=== PATIENT | female | born 1995 | race Two or more races ===

== ENCOUNTER → 2017-01-03 | Outpatient (REF) | payer MEDICAID | LOC: M SFHCPLAZ 09:50 | PROVIDERS: ATTEND Family Medicine | DX: E66.9 Obesity, unspecified (principal) ==

== ENCOUNTER → 2017-05-03 | Outpatient (REF) | payer MEDICAID ==
[2017-05-03 13:08] LABS: FREE T4 0.98 NG/DL (0.76-1.46)
== END ==
LOC: M SFHCPLAZ 09:43
PROVIDERS: ATTEND Family Medicine
DX: E03.9 Hypothyroidism, unspecified (principal)

== ENCOUNTER → 2017-05-23 | Outpatient (REF) | payer MEDICAID | LOC: M SFHCWAGY 13:57 | PROVIDERS: ATTEND Nurse Practitioner Women's Health | DX: Z12.4 Encounter for screening for malignant neoplasm of cervix (principal) ==

== ENCOUNTER → 2017-06-10 | Outpatient (CLI) | payer MEDICAID | LOC: M SLEEP 20:00 | DX: R06.83 Snoring (principal) | CPT/HCPCS: 95810 ==

== ENCOUNTER → 2018-07-30 | Outpatient (REF) | payer OTHER ==
[2018-07-30 16:00] LABS: BASO % 0.4 % (0.0-1.0); EOS # 0.4 10^3/uL (0.0-0.50); EOS % 4.2 % (0.0-3.0); HEMATOCRIT 38.6 % (36.0-47.0); HEMOGLOBIN 12.3 g/dl (12.0-15.5); LYMPH # 2.4 10^3/uL (1.5-6.5); LYMPH % 24.8 % (24.0-44.0); MEAN CORPUSCULAR HEMOGLOBIN 29.2 pg (27.0-33.0); MEAN CORPUSCULAR HGB CONC 31.9 g/dl (32.0-36.5); MEAN CORPUSCULAR VOLUME 91.7 fl (80.0-96.0); MONO # 0.5 10^3/uL (0.0-0.8); MONO % 5.2 % (0.0-5.0); NEUTROPHILS # 6.2 10^3/uL (1.8-7.7); PLATELET COUNT, AUTOMATED 249 10^3/uL (150-450); RED BLOOD COUNT 4.21 10^6/uL (4.00-5.40); WHITE BLOOD COUNT 9.6 10^3/uL (4.0-10.0)
[2018-07-30 16:32] LABS: FREE T4 1.02 NG/DL (0.76-1.46); PERCENT SATURATION 18.1 % (13.2-45.0); THYROID STIMULATING HORMONE 2.64 uIU/ML (0.358-3.740)
[2018-07-30 16:43] LABS: HEMOGLOBIN A1c 5.7 %
== END ==
LOC: M SFHCPLAZ 14:22
PROVIDERS: ATTEND Family Medicine
DX: E03.9 Hypothyroidism, unspecified (principal); Z13.1 Encounter for screening for diabetes mellitus; Z86.2 Personal history of diseases of the blood and blood-forming organs and certain disorders involving the immune mechanism

== ENCOUNTER → 2018-08-08 | Outpatient (REF) | payer OTHER ==
[2018-08-08 17:33] LABS: CHLAMYDIA DNA AMPLIFICATION NEGATIVE (NEGATIVE); GC DNA AMPLIFICATION NEGATIVE (NEGATIVE)
== END ==
LOC: M SFHCWAGY 15:43
PROVIDERS: ATTEND Nurse Practitioner Women's Health
DX: Z11.3 Encounter for screening for infections with a predominantly sexual mode of transmission (principal)

== ENCOUNTER → 2019-04-23 | Outpatient (CLI) | payer OTHER ==
[2019-04-23 18:06] LABS: HEMATOCRIT 39.5 % (36.0-47.0); HEMOGLOBIN 12.7 g/dl (12.0-15.5); MEAN CORPUSCULAR HEMOGLOBIN 29.8 pg (27.0-33.0); MEAN CORPUSCULAR HGB CONC 32.2 g/dl (32.0-36.5); MEAN CORPUSCULAR VOLUME 92.7 fl (80.0-96.0); PLATELET COUNT, AUTOMATED 275 10^3/uL (150-450); RED BLOOD COUNT 4.26 10^6/uL (4.00-5.40); WHITE BLOOD COUNT 9.5 10^3/uL (4.0-10.0)
[2019-04-23 18:32] LABS: HEMOGLOBIN A1c 5.3 %
[2019-04-23 18:38] LABS: ERYTHROCYTE SEDIMENTATION RATE 20 mm/hr (0-20)
--- NOTE | 2019-04-24 01:43 | REP ---
Clinical: Neck pain. Technique: AP, lateral, open mouth views of the cervical spine. Findings: Alignment is maintained. Mild reversal of normal lordosis is nonspecific. Vertebral bodies are intact. No acute fracture / compression injury or subluxation. C1-C2 articulation and odontoid process are normal. Prevertebral soft tissues are normal. Impression: Essentially normal cervical spine radiograph series. Electronically Signed by Bryan Thompson MD 04/24/2019 01:35 A
--- NOTE | 2019-04-24 01:45 | REP ---
Clinical: thoracic pain. Technique: AP, lateral views of the thoracic spine. Findings: Alignment and kyphosis is maintained. Vertebral bodies intact. No acute fracture / compression injury or subluxation. No degenerative changes. Paravertebral soft tissues are normal. Impression: Normal thoracic spine series. Electronically Signed by Bryan Thompson MD 04/24/2019 01:35 A
[2019-04-30 00:07] LABS: ANA (HEP2) Negative (.); HLA-B27 Positive (.)
== END ==
LOC: M LAB 16:45
PROVIDERS: ATTEND Obstetrics & Gynecology
DX: R73.03 Prediabetes (principal); M54.2 Cervicalgia; M54.6 Pain in thoracic spine; R21 Rash and other nonspecific skin eruption

== ENCOUNTER → 2020-04-21 | Outpatient (REF) | payer MEDICAID, OTHER ==
[2020-04-21 16:35] LABS: THYROID STIMULATING HORMONE 3.5 uIU/ML (0.358-3.740)
[2020-04-21 16:41] LABS: FOLLICLE STIMULATING HORMONE 2.9 mIU/mL; LUTEINIZING HORMONE 4.4 mIU/mL
== END ==
LOC: M SFHCPLAZ 11:57
PROVIDERS: ATTEND Internal Medicine
DX: E66.9 Obesity, unspecified (principal)

== ENCOUNTER → 2021-04-06 | Outpatient (CLI) | payer OTHER ==
[2021-04-06 17:40] LABS: BASO # 0.1 10^3/uL (0.0-0.2); BASO % 0.5 % (0.0-1.0); EOS # 0.4 10^3/uL (0.0-0.5); EOS % 3.8 % (0.0-3.0); HEMOGLOBIN 13.4 g/dl (12.0-15.5); LYMPH # 2.4 10^3/uL (1.5-5.0); LYMPH % 23.8 % (24.0-44.0); MEAN CORPUSCULAR HEMOGLOBIN 30.3 pg (27.0-33.0); MEAN CORPUSCULAR HGB CONC 32.7 g/dl (32.0-36.5); MEAN CORPUSCULAR VOLUME 92.8 fl (80.0-96.0); MONO # 0.5 10^3/uL (0.0-0.8); MONO % 5.3 % (2.0-8.0); NEUTROPHILS # 6.8 10^3/uL (1.5-8.5); NEUTROPHILS % 66.3 % (36.0-66.0); PLATELET COUNT, AUTOMATED 257 10^3/uL (150-450); RED BLOOD COUNT 4.42 10^6/uL (4.00-5.40); WHITE BLOOD COUNT 10.2 10^3/uL (4.0-10.0)
[2021-04-06 19:01] LABS: ALBUMIN 3.9 GM/DL (3.2-5.2); ALT/SGPT 23 U/L (12-78); BILIRUBIN,TOTAL 0.3 MG/DL (0.2-1.0); BLOOD UREA NITROGEN 10 MG/DL (7-18); CALCIUM LEVEL 9.4 MG/DL (8.5-10.1); CARBON DIOXIDE LEVEL 29 MEQ/L (21-32); CHLORIDE LEVEL 107 MEQ/L (98-107); CHOLESTEROL LEVEL 229 MG/DL (<200); CHOLESTEROL RISK RATIO 4.089 (<5); CREATININE FOR GFR 0.84 MG/DL (0.55-1.30); FERRITIN 71 NG/ML (8-252); FREE T4 1.08 NG/DL (0.76-1.46); GLOMERULAR FILTRATION RATE > 60.0 (>60); GLUCOSE, FASTING 83 MG/DL (70-100); HDL CHOLESTEROL 56 MG/DL (>40); IRON (FE) 104 UG/DL (50-170); LDL CHOLESTEROL 150 MG/DL (<100); NON-HDL-C 173 MG/DL; POTASSIUM SERUM 4.7 MEQ/L (3.5-5.1); SODIUM LEVEL 140 MEQ/L (136-145); TOTAL PROTEIN 7.4 GM/DL (6.4-8.2); TRIGLYCERIDES LEVEL 117 MG/DL (<150)
[2021-04-06 19:04] LABS: PTH INTACT 40.9 PG/ML (18.5-88.0); TOTAL 25(OH) VITAMIN D 31.4 NG/ML (30.0-100.0)
[2021-04-06 19:05] LABS: VITAMIN B12 LEVEL 666 PG/ML (247-911)
[2021-04-06 19:30] LABS: HEMOGLOBIN A1c 5.2 %
== END ==
LOC: M PLALAB 15:52
PROVIDERS: ATTEND Physician Assistant Medical
DX: E53.8 Deficiency of other specified B group vitamins (principal)

== ENCOUNTER → 2022-08-11 | Outpatient (CLI) | payer OTHER ==
[2022-08-11 17:47] LABS: BASO % 0.4 % (0.0-1.0); EOS # 0.4 10^3/uL (0.0-0.5); EOS % 4.2 % (0.0-3.0); HEMATOCRIT 40.3 % (36.0-47.0); HEMOGLOBIN 12.8 g/dl (12.0-15.5); LYMPH # 2.6 10^3/uL (1.5-5.0); LYMPH % 27.6 % (24.0-44.0); MEAN CORPUSCULAR HEMOGLOBIN 30.6 pg (27.0-33.0); MEAN CORPUSCULAR HGB CONC 31.8 g/dl (32.0-36.5); MEAN CORPUSCULAR VOLUME 96.4 fl (80.0-96.0); MONO # 0.5 10^3/uL (0.0-0.8); MONO % 5.8 % (2.0-8.0); NEUTROPHILS # 5.7 10^3/uL (1.5-8.5); NEUTROPHILS % 61.6 % (36.0-66.0); PLATELET COUNT, AUTOMATED 253 10^3/uL (150-450); RED BLOOD COUNT 4.18 10^6/uL (4.00-5.40); WHITE BLOOD COUNT 9.2 10^3/uL (4.0-10.0)
[2022-08-11 17:50] LABS: HEMOGLOBIN A1c 5.2 % (4.0-6.0)
[2022-08-11 18:28] LABS: CHOLESTEROL RISK RATIO 3.51 (<5); LDL CHOLESTEROL 131.6 MG/DL (<100)
[2022-08-11 18:33] LABS: FREE T4 1.25 NG/DL (0.89-1.76); THYROID STIMULATING HORMONE 8.59 uIU/ML (0.55-4.78)
[2022-08-11 18:34] LABS: TOTAL 25(OH) VITAMIN D 25.3 NG/ML (20.0-100.0)
== END ==
LOC: M PLALAB 14:58
PROVIDERS: ATTEND Physician Assistant Medical
DX: R73.03 Prediabetes (principal); M83.9 Adult osteomalacia, unspecified; F41.8 Other specified anxiety disorders; E53.8 Deficiency of other specified B group vitamins; Z13.220 Encounter for screening for lipoid disorders

== ENCOUNTER → 2022-09-08 | Outpatient (CLI) | payer OTHER | LOC: M WHC 07:01 | PROVIDERS: ATTEND Physician Assistant Medical | DX: G45.9 Transient cerebral ischemic attack, unspecified (principal) ==

== ENCOUNTER → 2022-09-12 | Outpatient (CLI) | payer OTHER | LOC: M CARPUL 14:17 | PROVIDERS: ATTEND Physician Assistant Medical | DX: R55 Syncope and collapse (principal) ==

== ENCOUNTER → 2022-09-22 | Outpatient (REF) | payer OTHER | LOC: M PLALAB 17:04 | PROVIDERS: ATTEND Nurse Practitioner Family | DX: Z12.4 Encounter for screening for malignant neoplasm of cervix (principal) ==

== ENCOUNTER → 2022-11-03 | Outpatient (CLI) | payer OTHER | LOC: M SLEEP 13:37 | PROVIDERS: ATTEND Physician Assistant Medical | DX: R55 Syncope and collapse (principal) ==

== ENCOUNTER → 2022-12-15 | Outpatient (CLI) | payer OTHER ==
[2022-12-15 13:28] LABS: BASO % 0.5 % (0.0-1.0); EOS # 0.3 10^3/uL (0.0-0.5); EOS % 3.9 % (0.0-3.0); HEMATOCRIT 39.1 % (36.0-47.0); HEMOGLOBIN 12.8 g/dl (12.0-15.5); LYMPH # 1.7 10^3/uL (1.5-5.0); LYMPH % 23.6 % (24.0-44.0); MEAN CORPUSCULAR HEMOGLOBIN 30.8 pg (27.0-33.0); MEAN CORPUSCULAR HGB CONC 32.7 g/dl (32.0-36.5); MEAN CORPUSCULAR VOLUME 94.2 fl (80.0-96.0); MONO # 0.5 10^3/uL (0.0-0.8); MONO % 6.9 % (2.0-8.0); NEUTROPHILS # 4.8 10^3/uL (1.5-8.5); NEUTROPHILS % 64.8 % (36.0-66.0); PLATELET COUNT, AUTOMATED 229 10^3/uL (150-450); RED BLOOD COUNT 4.15 10^6/uL (4.00-5.40); WHITE BLOOD COUNT 7.4 10^3/uL (4.0-10.0)
[2022-12-15 13:39] LABS: INR 0.87
[2022-12-15 13:40] LABS: PARTIAL THROMBOPLASTIN TIME 30.7 SECONDS (24.8-34.2)
[2022-12-15 13:56] LABS: ERYTHROCYTE SEDIMENTATION RATE 17 mm/hr (0-20)
[2022-12-16 20:08] LABS: ANA (HEP2) Negative (.)
== END ==
LOC: M PLALAB 09:22
PROVIDERS: ATTEND Physician Assistant Medical
DX: R21 Rash and other nonspecific skin eruption (principal)

== ENCOUNTER → 2023-06-21 | Outpatient (CLI) | payer OTHER ==
[2023-06-21 13:31] LABS: ALBUMIN 3.7 G/DL (3.2-5.2); ALKALINE PHOSPHATASE 51 U/L (46-116); ALT/SGPT 14 U/L (7.0-40); AST/SGOT 12 U/L (<34); BILIRUBIN,TOTAL 0.5 MG/DL (0.3-1.2); BLOOD UREA NITROGEN 10 MG/DL (9-23); CALCIUM LEVEL 8.7 MG/DL (8.5-10.1); CARBON DIOXIDE LEVEL 27 MMOL/L (20-31); CHLORIDE LEVEL 109 MMOL/L (98-107); CREATININE FOR GFR 0.79 MG/DL (0.55-1.30); GLOMERULAR FILTRATION RATE > 60.0 (>60); GLUCOSE, FASTING 92 MG/DL (60-100); POTASSIUM SERUM 4.3 MMOL/L (3.5-5.1); SODIUM LEVEL 140 MMOL/L (136-145); TOTAL PROTEIN 6.4 G/DL (5.7-8.2)
== END ==
LOC: M PLALAB 10:46
PROVIDERS: ATTEND Physician Assistant Medical
DX: F43.10 Post-traumatic stress disorder, unspecified (principal)

== ENCOUNTER → 2023-09-26 | Outpatient (REF) | payer OTHER | LOC: M SFHCWAGY 16:59 | PROVIDERS: ATTEND Nurse Practitioner Family | DX: N73.9 Female pelvic inflammatory disease, unspecified (principal); R30.0 Dysuria ==

== ENCOUNTER → 2023-10-06 | Outpatient (CLI) | payer OTHER ==
[2023-10-06 18:08] LABS: BASO # 0.1 10^3/uL (0.0-0.2); BASO % 0.5 % (0.0-1.0); EOS # 0.4 10^3/uL (0.0-0.5); EOS % 4.1 % (0.0-3.0); HEMATOCRIT 40.4 % (36.0-47.0); HEMOGLOBIN 13.2 g/dl (12.0-15.5); LYMPH # 2.3 10^3/uL (1.5-5.0); MEAN CORPUSCULAR HEMOGLOBIN 30.6 pg (27.0-33.0); MEAN CORPUSCULAR HGB CONC 32.7 g/dl (32.0-36.5); MEAN CORPUSCULAR VOLUME 93.5 fl (80.0-96.0); MONO # 0.6 10^3/uL (0.0-0.8); MONO % 6.1 % (2.0-8.0); NEUTROPHILS # 5.9 10^3/uL (1.5-8.5); NEUTROPHILS % 63.5 % (36.0-66.0); PLATELET COUNT, AUTOMATED 250 10^3/uL (150-450); RED BLOOD COUNT 4.32 10^6/uL (4.00-5.40); WHITE BLOOD COUNT 9.2 10^3/uL (4.0-10.0)
[2023-10-06 18:32] LABS: ALBUMIN 3.9 G/DL (3.2-5.2); ALKALINE PHOSPHATASE 58 U/L (46-116); ALT/SGPT 16 U/L (7.0-40); AST/SGOT 11 U/L (<34); BILIRUBIN,TOTAL 0.5 MG/DL (0.3-1.2); BLOOD UREA NITROGEN 11 MG/DL (9-23); CALCIUM LEVEL 9.1 MG/DL (8.5-10.1); CARBON DIOXIDE LEVEL 28 MMOL/L (20-31); CHLORIDE LEVEL 105 MMOL/L (98-107); CREATININE FOR GFR 0.75 MG/DL (0.55-1.30); GLOMERULAR FILTRATION RATE > 60.0 (>60); GLUCOSE, FASTING 83 MG/DL (60-100); POTASSIUM SERUM 4.4 MMOL/L (3.5-5.1); SODIUM LEVEL 138 MMOL/L (136-145); TOTAL PROTEIN 6.8 G/DL (5.7-8.2)
== END ==
LOC: M PLALAB 14:44
PROVIDERS: ATTEND Physician Assistant Medical
DX: K92.1 Melena (principal); K52.9 Noninfective gastroenteritis and colitis, unspecified

== ENCOUNTER 2024-08-20 08:03 | Day surgery (SDC) | payer OTHER ==
[~2024-08-20] VITALS: Ht 152.4 cm; Wt 91.2 kg
[~2024-08-20 08:03] MED LIST: B-12100010 PO; LEVO25TA5 PO; LIDOCAINE 2% 100MG/5ML SDV (FOR ANES.) As Ordered ONE; MULTTAB61 PO; SENN-187 PO; TRAZ-252 PO; VENL75CA47 PO; VITA100093 PO; propofoL 200 MG/20 ML VIAL As Ordered ONE
[2024-08-20] MEDS ORDERED: fentaNYL 100 MCG/2 ML INJECTION As Ordered ONE (09:04)
[2024-08-20 10:06] VITALS: TEMP 97.5
[2024-08-20 10:25] VITALS: BP 110/68; O2SAT 99
== END 2024-08-20 10:28 | disposition home or self-care (01) ==
LOC: M OPP 08:03
PROVIDERS: ATTEND Internal Medicine Gastroenterology
DX: K58.2 Mixed irritable bowel syndrome (principal); K58.1 Irritable bowel syndrome with constipation; R12 Heartburn; E03.9 Hypothyroidism, unspecified; F41.9 Anxiety disorder, unspecified; F32.A Depression, unspecified; E55.9 Vitamin D deficiency, unspecified; F12.20 Cannabis dependence, uncomplicated; Z79.890 Hormone replacement therapy; Z79.899 Other long term (current) drug therapy
CPT/HCPCS: 43239; 45380; 88305; J3010